=== PATIENT | female | born 1980 | race Caucasian/White ===

== ENCOUNTER → 2018-05-27 | Outpatient (CLI) | payer OTHER ==
[~2018-05-27] MED LIST: IOPAMIDOL 370 MG/ML 200 ML INFUS..BTL INJ ONE; SODIUM CHLORIDE 0.9% 250ML 250 ML ONE
--- NOTE | 2018-05-27 21:13 | Diagnostic Imaging Report ---
EXAM: CT Abdomen and Pelvis WITHOUT and WITH contrast INDICATION: Microscopic Hematuria ^[id number] ^1600 ^Other microscopic hematuria COMPARISON: None. TECHNIQUE: Abdomen and pelvis were scanned utilizing a multidetector helical scanner from the lung base to the pubic symphysis before and after administration of IV contrast. Coronal and sagittal reformations were obtained. CT Urogram protocol was performed. Scan was performed pre- and nephrogenic/excretory phase with a 10 minute split bolus in prone position. 3D volume renderings were created using a separate workstation. IV CONTRAST: 150 mL of Isovue-370 ORAL CONTRAST: Water COMPLICATIONS: None RADIATION DOSE: Total DLP: 1078.97 mGy*cm Estimated effective dose: (DLP x 0.015 x size factor) mSv CTDIvol has been reviewed. It is below the limits set by the Radiation Protocol Committee (RPC). Dose modulation, iterative reconstruction, and/or weight based adjustment of the mA/kV was utilized to reduce the radiation dose to as low as reasonably achievable. FINDINGS: LINES and TUBES: None. LOWER THORAX: Unremarkable HEPATOBILIARY: No focal hepatic lesions. No biliary ductal dilation. GALLBLADDER: No radio-opaque stones or sludge. No wall thickening. SPLEEN: No splenomegaly. PANCREAS: No focal masses or ductal dilatation. ADRENALS: No adrenal nodules KIDNEYS/URETERS: Kidneys enhance symmetrically. No hydronephrosis. No cystic or solid mass lesions. The right proximal ureter is not well opacified likely secondary to peristalsis. No filling defects within the opacified portions of the collecting system. No stones. GI TRACT: No abnormal distention, wall thickening, or evidence of bowel obstruction. Appendix is normal. PELVIC ORGANS/BLADDER: Hysterectomy. No focal bladder wall thickening or filling defects. LYMPH NODES: No lymphadenopathy. VESSELS: Unremarkable. PERITONEUM / RETROPERITONEUM: Trace free fluid in the pelvis. No free air. BONES: Unremarkable. SOFT TISSUES: Low transverse scar. IMPRESSION: No CT findings to explain hematuria. Signed by: DR. Michael Cobb MD on 05/27/2018 9:10 PM
== END ==
LOC: CT 14:53
PROVIDERS: ATTEND Urology
DX: R31.9 Hematuria, unspecified (principal)
CPT/HCPCS: 74178; J7050; Q9967

== ENCOUNTER → 2018-05-30 | Day surgery (SDC) | payer OTHER ==
[~2018-05-30] MED LIST changes: +CEFTRIAXONE SOD 1 GM VIAL ONE; +FENTANYL CITRATE/PF 100MCG/2 ML INJ ONE; -IOPAMIDOL 370 MG/ML 200 ML INFUS..BTL INJ ONE; +IOPAMIDOL 610MG/1ML 300 MG/ML VIAL IV ONE; +LIDOCAINE HCL 2% LOCAL INJ 5 ML SDV VIAL INJ ONE; +MIDAZOLAM HCL 2 MG/2 ML VIAL ONE; +PROPOFOL IV EMULSION 10 MG/ML 20 ML VIAL ONE; +SEVOFLURANE INHAL SOLN 250 ML PEN BTL ONE; -SODIUM CHLORIDE 0.9% 250ML 250 ML ONE
--- OUTSIDE RECORDS SUMMARY | 2018-05-30 05:09 | XMS REPORT | Clinical Summary ---
Author Author [facility] Organization [facility] [place] [facility] Address Unknown Phone Unavailable Care Team Providers Care Supervisor [employer] Name Role Phone Scot Marrufo MD PCP Allergies Active Allergy Reactions Severity Noted Date Comments Aspirin Swelling 10/29/2017 Ibuprofen Swelling 10/29/2017 Current Medications Prescription Sig. Disp. Refills Start End Date Status Date cyclobenzaprine Take 1 tablet (10 mg 15 tablet 0 10/30/19 Active (FLEXERIL) 10 mg tablet total) by mouth 2 (two) 18 times a day as needed for muscle spasms for up to 15 doses. HYDROcodone-acetaminophen Take 2 tablets by mouth Active (NORCO) 5-325 mg per every 4 (four) hours as tablet needed for moderate pain (medication given for hysteroctomy pain on 02/03). keTOROlac (TORadol) 10 mg Take 10 mg by mouth every Active tablet 6 (six) hours as needed for moderate pain. traMADol (ULTRAM) 50 mg Take 1 tablet (50 mg 10 tablet 0 10/30/19 11/06/19 tablet total) by mouth every 6 18 18 (six) hours as needed for moderate pain for up to 10 doses. pantoprazole (PROTONIX) Take 1 tablet (40 mg 30 tablet 2 02/12/20 03/13/20 40 MG EC tablet total) by mouth daily for 18 18 30 days. Active Problems Problem Noted Date Chest pain 02/10/2018 Encounters Date Type Specialty Care Team Description 02/10/2018 [facility] General Internal Medicine Jayson Bosch MD Chest pain, unspecified - Encounter type (Primary Dx) 02/11/2018 10/29/2017 Emergency Emergency Medicine William Melendez, Cervical radiculopathy DO (Primary Dx) after 05/29/2017 Social History Tobacco Use Types Packs/Day Years Used Date Never Smoker Smokeless Tobacco: Never Used Alcohol Use Drinks/Week oz/Week Comments Yes 3 Cans of 1.8 "drinks alcohol occasionally." beer Sex Assigned at Date Recorded Not on file Last Filed Vital Signs Vital Sign Reading Time Taken Blood Pressure 106/69 02/11/2018 11:36 AM CDT Pulse 69 02/11/2018 11:36 AM CDT Temperature 36.1 C (97 F) 02/11/2018 11:36 AM CDT Respiratory Rate 16 02/11/2018 11:36 AM CDT Oxygen Saturation 98% 02/11/2018 11:36 AM CDT Inhaled Oxygen - - Concentration Weight 72.6 kg (160 lb) 02/10/2018 10:25 PM CDT Height 160 cm (5' 3") 02/10/2018 10:25 PM CDT Body Mass Index 28.34 02/10/2018 10:25 PM CDT Plan of Treatment Health Maintenance Due Date Last Done Comments CERVICAL CANCER SCREENING 01/24/2000 INFLUENZA VACCINE 02/19/2018 Procedures Procedure Name Priority Date/Time Associated Diagnosis Comments TROPONIN Timed 02/11/2018 Results for this 10:55 AM CDT procedure are in the results section. ECG 12-LEAD Routine 02/11/2018 Results for this 9:59 AM CDT procedure are in the results section. ECHOCARDIOGRAM 2D Routine 02/11/2018 Results for this COMPLETE W MMODE SPECTRAL 9:08 AM CDT procedure are in the COLOR DOPPLER ([id number]) results section. ZZESTIMATED GFR Routine 02/11/2018 Results for this 5:38 AM CDT procedure are in the results section. BASIC METABOLIC PANEL Routine 02/11/2018 Results for this 5:38 AM CDT procedure are in the results section. CBC HEMOGRAM Routine 02/11/2018 Results for this 5:38 AM CDT procedure are in the results section. TROPONIN Timed 02/11/2018 Results for this 12:21 AM CDT procedure are in the results section. ECG 12-LEAD Routine 02/11/2018 Results for this 12:11 AM CDT procedure are in the results section. XR CHEST 2 VW STAT 10/29/2017 Results for this 5:54 AM CDT procedure are in the results section. CT CERVICAL SPINE WO STAT 10/29/2017 Results for this CONTRAST 5:44 AM CDT procedure are in the results section. ZZESTIMATED GFR STAT 10/29/2017 Results for this 5:19 AM CDT procedure are in the results section. B NATRIURETIC PEPTIDE STAT 10/29/2017 Results for this 5:19 AM CDT procedure are in the results section. TROPONIN STAT 10/29/2017 Results for this 5:19 AM CDT procedure are in the results section. COMPREHENSIVE METABOLIC STAT 10/29/2017 Results for this PANEL 5:19 AM CDT procedure are in the results section. HC COMPLETE BLD COUNT STAT 10/29/2017 Results for this W/AUTO DIFF 5:19 AM CDT procedure are in the results section. HCG QUALITATIVE, URINE Routine 10/29/2017 Results for this SCREEN 5:08 AM CDT procedure are in the results section. ECG 12-LEAD STAT 10/29/2017 Results for this 4:43 AM CDT procedure are in the results section. after 05/29/2017 Results * Troponin (02/11/2018 10:55 AM) Only the most recent of 3 results within the time period is included. Troponin <0.30 0.00 - 0.30 ng/mL [facility] DEPARTMENT OF Comment: PATHOLOGY AND 0.11 - 1.49 GENOMIC MEDICINE ng/mlMay indicate increased risk of acute coronary syndrome. >=1.5 ng/ml Consistent with acute myocardial infarction. The diagnostic value of a single normal or non-diagnostic result is questionable.Serial samples at 2-6 hour intervals are required to rule out acute myocardial injury. Specimen Plasma specimen Performing Organization Address City/State/Zipcode Phone Number [place] [phone] [place] [address] PATHOLOGY AND GENOMIC MEDICINE * ECG 12 lead (02/11/2018 9:59 AM) Only the most recent of 3 results within the time period is included. Ventricular rate 69 [facility] Atrial rate 69 [facility] WI interval 120 [facility] QRSD interval 80 [facility] QT interval 390 [facility] QTC interval 417 [facility] P axis 1 60 [facility] QRS axis 1 21 [facility] T wave axis 28 [facility] EKG impression Normal sinus rhythm with sinus [facility] arrhythmia-Normal ECG-In automated comparison with ECG of 11-FEB-2018 00:11,-No significant change was found- Performing Organization Address City/State/Zipcode Phone Number [facility] MUSE [address] [place] [address] * Echocardiogram complete w contrast and 3D if needed (02/11/2018 9:08 AM) Ao Root Diameter 2.69 cm [facility] AoV Area, Vmax 2.07 cm2 [facility] AoV Area, VTI 2.24 cm2 [facility] AoV Mean PG 5.22 mmHg [facility] AoV Peak PG 9.00 mmHg [facility] AoV Vmax 1.50 m/s [facility] AoV VTI 0.30 m [facility] IVS,d 0.95 cm [facility] IVS/LVPW,2D 0.95 [facility] Left Atrium Dimension 3.83 cm [facility] Anterior LV,d 4.41 cm [facility] LV EF,2D 64.60 % [facility] LV,s 3.12 cm [facility] LVOT area 2.75 cm2 [facility] LVOT Diam,S 1.87 cm [facility] LVOT Vmax 1.13 m/s [facility] LVOT VTI 0.24 m [facility] LVPWD,d 1.00 cm [facility] PV Pk Grad 3.68 mmHg [facility] PV VMAX 0.96 m/s [facility] TR Vpeak 2.20 mm/s [facility] MV E A ratio 2.05 mmHg [facility] TR pk grad 19.40 mmHg [facility] E wave decelartion time 197.26 msec [facility] MV Peak A Nino 0.41 m/s [facility] MV valve area p 1/2 3.85 cm2 [facility] method MV Peak E Nino 0.83 m/s [facility] MV stenosis pressure 1/2 57.20 ms [facility] time AV LVOT peak gradient 5.15 mmHg [facility] Ao Root Diameter 2.69 cm [facility] MV mean gradient 1.22 mmHg [facility] LV SYS VOL 38.45 ml [facility] LV RANGEL VOL 88.05 ml [facility] LV SV Teich 2D 49.60 ml [facility] LV Vol s Teich PSAX 38.45 ml [facility] LVOT CO 4.37 l/min [facility] LVOT HR for LVOT CO 65.28 bpm [facility] MR peak grad 3.42 mmHg [facility] MV Vmax 0.92 m [facility] MV VTI Tips 0.22 m [facility] AoV Vmn 1.09 [facility] IVS s 2D 1.30 [facility] LV FS Teich 2D 29.26 [facility] MV AE ratio 0.49 [facility] LV FS Cube 2D 29.26 [facility] LVOT Vmn 0.83 [facility] Aov area Vmn 2.09 cm2 [facility] LVOT mean grad 2.99 mmHg [facility] MAX Pred HR 180.95 [facility] 85 of MPHR 153.81 [facility] Calc MPHR 180.95 bpm [facility] IVS pct thck PLAX 37.24 % [facility] LV SV Cube 2D 55.32 ml [facility] LV vol d cube 2D 85.63 ml [facility] LV vol s cube 2D 30.31 ml [facility] LVPW pct thck PLAX 32.44 % [facility] LVPW s PLAX 1.32 cm [facility] MV Decel slope 4.22 m/s2 [facility] Pred Exer Dur R1 10.17 [facility] Pred METS R1 9.62 [facility] LA Vol MOD A4C 34.76 ml [facility] Velocity Ratio (V1/V2) 0.75 m/s [facility] EF 56.33 % [facility] E/A ratio 2.02 [facility] Narrative Performed At [facility] Left ventricular systolic function is normal. Left Ventricular ejection fraction is 50 - 55%. Normal left ventricular regional wall motion. Normal right ventricular size and function with normal systolic PA pressure. No hemodynamically significant valvular stenosis or regurgitation. No pericardial effusion. No previous echo for comparison. Performing Organization Address City/State/Zipcode Phone Number [facility] [address] [place] [address] * Estimated GFR (02/11/2018 5:38 AM) Only the most recent of 2 results within the time period is included. GFR Non Af Amer >90 mL/min/1.73 m2 [facility] DEPARTMENT OF PATHOLOGY AND GENOMIC MEDICINE GFR Af Amer >90 mL/min/1.73 m2 [facility] DEPARTMENT OF Comment: PATHOLOGY AND Chronic kidney disease: <60 GENOMIC MEDICINE mL/min/1.73m2 Kidney failure: <15 mL/min/1.73m2 The estimated GFR is calculated from the IDMS-traceable Modification of Diet in Renal Disease Equation. The accuracy of the calculation is poor when the creatinine is normal. Calculated values >90 mL/min/1.73m2 are not reported. This equation has not been validated in children (<18 years), women, the elderly (>70 years), or ethnic groups other than Caucasians and Americans. Specimen Plasma specimen Performing Organization Address City/[facility]/Zipcode Phone Number [place] [address] [place] [address] PATHOLOGY AND [employer] MEDICINE * CBC hemogram (02/11/2018 5:38 AM) WBC 5.9 4.2 - 11.0 k/uL [facility] OF PATHOLOGY AND GENOMIC MEDICINE RBC 3.28 (L) 4.04 - 5.86 m/uL [facility] DEPARTMENT OF PATHOLOGY AND GENOMIC MEDICINE HGB 10.2 (L) 11.5 - 15.3 g/dL [facility] DEPARTMENT OF PATHOLOGY AND GENOMIC MEDICINE HCT 31.8 (L) 34.0 - 45.0 % [facility] DEPARTMENT OF PATHOLOGY AND GENOMIC MEDICINE MCV 97.0 80.0 - 98.0 fL [facility] DEPARTMENT OF PATHOLOGY AND GENOMIC MEDICINE MCH 31.1 27.0 - 34.0 pg [facility] DEPARTMENT OF PATHOLOGY AND GENOMIC MEDICINE MCHC 32.1 31.5 - 36.5 g/dL [facility] DEPARTMENT OF PATHOLOGY AND GENOMIC MEDICINE RDW - SD 43.0 37.0 - 51.0 fL [facility] DEPARTMENT OF PATHOLOGY AND GENOMIC MEDICINE MPV 9.6 7.4 - 10.4 fL [facility] DEPARTMENT OF PATHOLOGY AND GENOMIC MEDICINE Platelet count 328 150 - 400 k/uL [facility] DEPARTMENT PATHOLOGY AND GENOMIC MEDICINE Nucleated RBC 0.00 /100 WBC [facility] OF PATHOLOGY AND GENOMIC MEDICINE Specimen Blood Performing Organization Address City/[facility]/Zipcode Phone Number [place] [address] [place] [address] PATHOLOGY AND [employer] MEDICINE * Basic metabolic panel (02/11/2018 5:38 AM) Sodium 140 135 - 150 mEq/L [facility] DEPARTMENT OF PATHOLOGY AND GENOMIC MEDICINE Potassium 3.6 3.5 - 5.0 mEq/L [facility] DEPARTMENT OF PATHOLOGY AND GENOMIC MEDICINE Chloride 103 98 - 112 mEq/L [facility] DEPARTMENT PATHOLOGY AND GENOMIC MEDICINE CO2 27 24 - 31 mmol/L [facility] DEPARTMENT OF PATHOLOGY AND GENOMIC MEDICINE Anion gap 10@ANIO 7 - 15 mEq/L [facility] DEPARTMENT OF PATHOLOGY AND GENOMIC MEDICINE BUN 12 7 - 18 mg/dL [facility] DEPARTMENT OF PATHOLOGY AND GENOMIC MEDICINE Creatinine 0.50 0.50 - 0.90 mg/dL [facility] DEPARTMENT OF PATHOLOGY AND GENOMIC MEDICINE Glucose 100 65 - 100 mg/dL [facility] DEPARTMENT OF PATHOLOGY AND GENOMIC MEDICINE Calcium 8.7 8.3 - 10.2 mg/dL [facility] DEPARTMENT OF PATHOLOGY AND GENOMIC MEDICINE Specimen Plasma specimen Performing Organization Address City/[facility] Phone Number [facility] DEPARTMENT OF [address] [place] [address] PATHOLOGY AND GENOMIC MEDICINE * XR Chest 2 Vw (10/29/2017 5:54 AM) Narrative Performed At EXAMINATION:[facility] CLINICAL [facility]:SHORTNESS OF BREATH COMPARISON: None . IMPRESSION: Cardiomediastinal silhouette and pulmonary vasculature are within normal limits. Lungs are clear. No pleural effusion or pneumothorax. Bones are unremarkable. [id number] Procedure Note Interface, Radiology Results Incoming - 10/29/2017 6:13 AM CDT EXAMINATION: XR CHEST 2 VW CLINICAL HISTORY: SHORTNESS OF BREATH COMPARISON: None . IMPRESSION: Cardiomediastinal silhouette and pulmonary vasculature are within normal limits. Lungs are clear. No pleural effusion or pneumothorax. Bones are unremarkable. [facility]-[id number] Performing Organization Address [facility] Hospitalcoin Phone Number [facility] [address] [place] [address] * CT Cervical Spine Wo Contrast (10/29/2017 5:44 AM) Narrative Performed At EXAMINATION:CT CERVICAL SPINE WO CONTRAST [facility] CT IMAGING WAS PERFORMED WITH ITERATIVE RECONSTRUCTION TECHNIQUE AND/OR AUTOMATED EXPOSURE CONTROL TO REDUCE RADIATION DOSE. CLINICAL HISTORY:left arm parasthesia COMPARISON:None. TECHNIQUE: Axial helical CT images throughout the cervical spine were performed without IV contrast. Sagittal and coronal reformatted images were generated. FINDINGS: 1.There is no evidence of fracture, traumatic subluxation, or prevertebral soft tissue swelling. There is slight reversal of the normal cervical lordotic curve with apex at C5-6 which could be at least in part positional in nature.. 2. 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 3.There is some minimal spondylolisthesis and there are moderate to marked degenerative changes in the facet joints at T2-T3. 4.There is minimal cervical spondylosis without cervical spondylolisthesis. There is no spinal canal or foraminal stenosis. IMPRESSION: No acute cervical spine bony abnormality. There is slight reversal of the normal cervical lordotic curve which could be at least in part positional in nature. [id number] Procedure Note Interface, Radiology Results Incoming - 10/29/2017 6:23 AM CDT EXAMINATION: CT CERVICAL SPINE WO CONTRAST CT IMAGING WAS PERFORMED WITH ITERATIVE RECONSTRUCTION TECHNIQUE AND/OR AUTOMATED EXPOSURE CONTROL TO REDUCE RADIATION DOSE. CLINICAL HISTORY: left arm parasthesia COMPARISON: None. TECHNIQUE: Axial helical CT images throughout the cervical spine were performed without IV contrast. Sagittal and coronal reformatted images were generated. FINDINGS: 1. There is no evidence of fracture, traumatic subluxation, or prevertebral soft tissue swelling. There is slight reversal of the normal cervical lordotic curve with apex at C5-6 which could be at least in part positional in nature.. 2. 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 3. There is some minimal spondylolisthesis and there are moderate to marked degenerative changes in the facet joints at T2-T3. 4. There is minimal cervical spondylosis without cervical spondylolisthesis. There is no spinal canal or foraminal stenosis. IMPRESSION: No acute cervical spine bony abnormality. There is slight reversal of the normal cervical lordotic curve which could be at least in part positional in nature. [facility]-[id number] Performing Organization Address City/State/Zipcode Phone Number [facility] [address] [place] [address] * CBC with platelet and differential (10/29/2017 5:19 AM) WBC 5.6 4.2 - 11.0 k/uL [facility] DEPARTMENT OF PATHOLOGY AND GENOMIC MEDICINE RBC 3.79 (L) 4.04 - 5.86 m/uL [facility] DEPARTMENT OF PATHOLOGY AND GENOMIC MEDICINE HGB 11.7 11.5 - 15.3 g/dL [facility] DEPARTMENT OF PATHOLOGY AND GENOMIC MEDICINE HCT 36.0 34.0 - 45.0 % [facility] DEPARTMENT OF PATHOLOGY AND GENOMIC MEDICINE MCV 95.0 80.0 - 98.0 fL [facility] DEPARTMENT OF PATHOLOGY AND GENOMIC MEDICINE MCH 30.9 27.0 - 34.0 pg [facility] DEPARTMENT OF PATHOLOGY AND GENOMIC MEDICINE MCHC 32.5 31.5 - 36.5 g/dL [facility] DEPARTMENT OF PATHOLOGY AND GENOMIC MEDICINE RDW - SD 44.6 37.0 - 51.0 fL [facility] DEPARTMENT OF PATHOLOGY AND GENOMIC MEDICINE MPV 10.0 7.4 - 10.4 fL [facility] DEPARTMENT OF PATHOLOGY AND GENOMIC MEDICINE Platelet count 271 150 - 400 k/uL [facility] DEPARTMENT OF PATHOLOGY AND GENOMIC MEDICINE Nucleated RBC 0.00 /100 WBC [facility] DEPARTMENT OF PATHOLOGY AND GENOMIC MEDICINE Neutrophils 63.7 36.0 - 66.0 % [facility] DEPARTMENT OF PATHOLOGY AND GENOMIC MEDICINE Lymphocytes 25.0 24.0 - 44.0 % [facility] DEPARTMENT OF PATHOLOGY AND GENOMIC MEDICINE Monocytes 8.4 (H) 0.0 - 6.0 % [facility] DEPARTMENT OF PATHOLOGY AND GENOMIC MEDICINE Eosinophils 1.8 0.0 - 6.0 % [facility] DEPARTMENT PATHOLOGY AND GENOMIC MEDICINE Basophils 0.7 0.0 - 1.2 % [facility] DEPARTMENT PATHOLOGY AND GENOMIC MEDICINE Immature granulocytes 0.4 0.0 - 1.0 % [facility] DEPARTMENT OF PATHOLOGY AND [employer] [facility]ICINE Specimen Blood Performing Organization Address City/[facility] [place] [address] PATHOLOGY AND [employer] [facility] * B natriuretic peptide (10/29/2017 5:19 AM) BNP 28 0 - 100 pg/mL [facility] PATHOLOGY AND [employer] MEDICINE Specimen Blood Performing Organization Address City/[facility] [place] [address] PATHOLOGY AND [employer] [facility] * Comprehensive metabolic panel (10/29/2017 5:19 AM) Sodium 138 135 - 150 mEq/L [facility] DEPARTMENT OF PATHOLOGY AND GENOMIC MEDICINE Potassium 3.7 3.5 - 5.0 mEq/L [facility] DEPARTMENT OF PATHOLOGY AND GENOMIC MEDICINE Chloride 106 100 - 109 mEq/L [facility] DEPARTMENT OF PATHOLOGY AND GENOMIC MEDICINE CO2 24 24 - 32 mmol/L [facility] DEPARTMENT OF PATHOLOGY AND GENOMIC MEDICINE Anion gap 8 7 - 15 mEq/L [facility] DEPARTMENT OF Comment: PATHOLOGY AND Starting from October [employer] [facility] , anion gap calculation no longer incorporates potassium. Please note the change. BUN 11 7 - 18 mg/dL [facility] DEPARTMENT OF PATHOLOGY AND [employer] MEDICINE Creatinine 0.7 (L) 0.8 - 1.5 mg/dL [facility] DEPARTMENT OF PATHOLOGY AND GENOMIC MEDICINE Glucose 97 65 - 100 mg/dL [facility] DEPARTMENT OF PATHOLOGY AND GENOMIC MEDICINE Calcium 8.3 (L) 8.6 - 10.7 mg/dL [facility] DEPARTMENT OF PATHOLOGY AND GENOMIC MEDICINE Protein 6.9 6.3 - 8.2 g/dL [facility] DEPARTMENT OF PATHOLOGY AND GENOMIC MEDICINE Albumin 3.8 3.2 - 5.0 g/dL [facility] DEPARTMENT OF PATHOLOGY AND GENOMIC MEDICINE A/G ratio 1.2 0.7 - 3.8 [facility] DEPARTMENT OF PATHOLOGY AND GENOMIC MEDICINE Alkaline phosphatase 43 30 - 120 U/L [facility] DEPARTMENT OF PATHOLOGY AND GENOMIC MEDICINE AST 11 (L) 15 - 37 U/L [facility] DEPARTMENT OF PATHOLOGY AND GENOMIC MEDICINE ALT 17 (L) 30 - 65 U/L [facility] DEPARTMENT OF PATHOLOGY AND GENOMIC MEDICINE Total bilirubin 0.5 0.2 - 1.2 mg/dL [facility] DEPARTMENT OF PATHOLOGY AND GENOMIC MEDICINE Specimen Plasma specimen Performing Organization Address City/State/[facility] Phone Number [facility] [address] [place] [address] PATHOLOGY AND GENOMIC MEDICINE * hCG qualitative, urine screen (10/29/2017 5:08 AM) hCG qualitative, urine Negative Negative [facility] DEPARTMENT OF Comment: PATHOLOGY AND The manufacturers stated GENOMIC MEDICINE sensitivity of HcG test for serum is >/=10 mIU/ml and urine is >/=20mIU/ml. Specimen Urine Performing Organization Address City/State/Zipcode Phone Number [facility] DEPARTMENT [address] [place] [address] PATHOLOGY AND GENOMIC MEDICINE after 05/29/2017 Insurance Payer Benefit Subscriber ID Type Phone Address Plan / Group [employer] xxxxxxxxxx Exchange [employer] EXCHANGE [place] [id number]
--- OUTSIDE RECORDS SUMMARY | 2018-05-30 05:09 | XMS REPORT ---
Author [facility] Address Unknown Phone Unavailable Care Team Providers Care Director Of Application Development Name Role Phone JAVY BOOKER Unavailable Unavailable Payers Payer Name Policy Type Policy Number Effective Date Expiration Date Problems This patient has no known problems. Allergies, Adverse Reactions, Alerts Allergy Name Allergy Type Status Severity Reaction(s) Onset Date Inactive Date Treating Clinician Comments aspirin DA Active U 2015-02-02 00:00:00 ibuprofen DA Active U 2015-02-02 00:00:00 Medications This patient has no known medications. Results Test Description Test Time Test Comments Text Results Atomic Results Result Comments CT ABDOMEN/PELVIS WOW 2018-05-27 20:59:00 [place] [address] Patient Name: EILSABETH MIKE MR #: [id number] : 1980 Age/Sex: 38/F Req #: [id number] Adm Physician: Ordered by: JAVY BOOKER MD Report #: [id number] Location: CT Room/Bed: Procedure: [id number] CT/CT ABDOMEN/PELVIS WOW Exam Date: 05/27/18 Exam Time: 1600 REPORT STATUS: Signed EXAM: CT Abdomen and Pelvis WITHOUT and WITH contrast INDICATION: Microscopic Hematuria [id number] Other microscopic hematuria COMPARISON: None. TECHNIQUE: Abdomen and pelvis were scanned utilizing a multidetector helical scanner from the lung base to the pubic symphysis before and after administration of IV contrast. Coronal and sagittal reformations were obtained. CT Urogram protocol was performed. Scan was performed pre- and nephrogenic/excretory phase with a 10 minute split bolus in prone position. 3D volume renderings were created using a separate workstation. IV CONTRAST: 150 mL of Isovue-370 ORAL CONTRAST: Water COMPLICATIONS: None RADIATION DOSE: Total DLP: 1078.97 mGy*cm Estimated effective dose: (DLP x 0.015 x size factor) mSv CTDIvol has been reviewed. It is below the limits set by the Radiation Protocol Committee (RPC). Dose modulation, iterative reconstruction, and/or weight based adjustment of the mA/kV was utilized to reduce the radiation dose to as low as reasonably achievable. FINDINGS: LINES and TUBES: None. LOWER THORAX: Unremarkable HEPATOBILIARY: No focal hepatic lesions. No biliary ductal dilation. GALLBLADDER: No radio- opaque stones or sludge. No wall thickening. SPLEEN: No splenomegaly. PANCREAS: No focal masses or ductal dilatation. ADRENALS: No adrenal nodules KIDNEYS/URETERS: Kidneys enhance symmetrically. No hydronephrosis. No cystic or solid mass lesions. The right proximal ureter is not well opacified likely secondary to peristalsis. No filling defects within the opacified portions of the collecting system. No stones. GI TRACT: No abnormal distention, wall thickening, or evidence of bowel obstruction. Appendix is normal. PELVIC ORGANS/BLADDER: Hysterectomy. No focal bladder wall thickening or filling defects. LYMPH NODES: No lymphadenopathy. VESSELS: Unremarkable. PERITONEUM / RETROPERITONEUM: Trace free fluid in the pelvis. No free air. BONES: Unremarkable. SOFT TISSUES: Low transverse scar. IMPRESSION: No CT findings to explain hematuria. Signed by: DR. Michael Dao MD on 05/27/2018 9:10 PM Dictated By: MICHAEL DAO MD 09 Transcribed By: YOLA on 05/27/182109 COPY TO: JAVY BOOKER MD
[2018-05-30 08:05] VITALS: BP 102/54
--- NOTE | 2018-05-30 13:14 | Operative Report ---
DATE OF PROCEDURE: May 30, 2018 PREOPERATIVE DIAGNOSES 1. Multiple chronic urinary tract infections. 2. Clinical signs and symptoms of interstitial cystitis without hematuria. POSTOPERATIVE DIAGNOSES 1. Multiple chronic urinary tract infections. 1. Clinical signs and symptoms of interstitial cystitis without hematuria. PROCEDURES PERFORMED 1. Cystourethroscopy with hydrodistention (entirely separate procedure for the clinical signs and symptoms of interstitial cystitis). 2. Cystourethroscopy with left ureteral catheterization and left retrograde pyelogram (entirely separate procedure for the multiple chronic urinary tract infections). 3. Cystourethroscopy with right ureteral catheterization and right retrograde pyelogram (entirely separate procedure for the multiple chronic urinary tract infections). 4. Supervision of fluoroscopy. 5. Interpretation of retrograde pyelography. ANESTHESIA: General. ESTIMATED BLOOD LOSS: Minimal. COMPLICATIONS: None. INDICATIONS FOR PROCEDURE: Ms. Alvarado is a very pleasant [id number] female patient with a history of pelvic pain and multiple chronic urinary tract infections. She and I had a long discussion in regard to the alternatives, the risks and benefits including doing nothing, cystoscopy, IVP, retrograde pyelograms or renal ultrasound, and hydrodistention. She voiced understanding of the options, of the alternatives, of the risks and the benefits, and she elected to proceed in order to avoid the nephrotoxic risk of dye. PROCEDURE IN DETAIL: After informed consent was obtained, the patient was taken to the operating room suite. She was placed supine on the operating table, and she underwent general anesthesia by the anesthesia service. She was placed in the dorsal lithotomy, and a time out was taken. A 21-Dominican cystoscope was entered per urethra, and a normal urethra was noted. Panendoscopy of the bladder revealed no tumors, no stones. Both ureteral orifices were in their normal anatomical location and position and were seen to efflux clear urine. A hydrodistention was performed, revealing a capacity of 800 mL. There were no glomerulations, and there were no Hunner ulcers. Bilateral retrograde pyelograms were performed, which were normal. The bladder was drained. The patient was awakened from anesthesia and transported to the recovery room in excellent condition. SUPERVISION OF FLUOROSCOPY AND INTERPRETATION OF RETROGRADE URETEROPYELOGRAPHY: I was present throughout the entire procedure. Attention was turned toward the left and right ureteral orifices, which were catheterized in a retrograde fashion. Contrast was injected, revealing delicate ureters and delicate pelvocaliceal systems. Several air-bubbling filling defects which cleared under fluoroscopy. IMPRESSION: Normal retrograde pyelograms. Job#: [id number] EV cc:ESTEBAN ACUÑA MD
== END | disposition home or self-care (01) ==
LOC: OR 05:06
PROVIDERS: ATTEND Urology
DX: N39.0 Urinary tract infection, site not specified (principal); R35.1 Nocturia; R35.0 Frequency of micturition; R39.15 Urgency of urination; R10.2 Pelvic and perineal pain; Z88.6 Allergy status to analgesic agent; Z88.8 Allergy status to other drugs, medicaments and biological substances; Z90.710 Acquired absence of both cervix and uterus
CPT/HCPCS: 52005; 74420; 81025; C1758; J0696; J2001; J2250; J2704; Q9967

== ENCOUNTER → 2020-01-14 | Outpatient (CLI) | payer OTHER ==
[~2020-01-14] MED LIST changes: -CEFTRIAXONE SOD 1 GM VIAL ONE; -FENTANYL CITRATE/PF 100MCG/2 ML INJ ONE; +IOPAMIDOL 370 MG/ML 200 ML INFUS..BTL INJ ONE; -IOPAMIDOL 610MG/1ML 300 MG/ML VIAL IV ONE; -LIDOCAINE HCL 2% LOCAL INJ 5 ML SDV VIAL INJ ONE; -MIDAZOLAM HCL 2 MG/2 ML VIAL ONE; -PROPOFOL IV EMULSION 10 MG/ML 20 ML VIAL ONE; -SEVOFLURANE INHAL SOLN 250 ML PEN BTL ONE; +SODIUM CHLORIDE 0.9% 250ML 250 ML ONE
--- NOTE | 2020-01-14 14:43 | Diagnostic Imaging Report ---
EXAM: CT Abdomen and Pelvis WITHOUT and WITH intravenous contrast - Hematuriaprotocol INDICATION: Gross hematuria COMPARISON: CT abdomen/pelvis of 05/14/2019 and 05/27/2018 TECHNIQUE: Abdomen and pelvis were scanned utilizing a multidetector helical scanner from the lung base to the pubic symphysis before and after administration of IV contrast. Coronal and sagittal reformations were obtained. Hematuria protocol was used. Scan was performed prior to contrast administration and during portal venous phase. IV CONTRAST: 100 mL of Isovue 370 ORAL CONTRAST: None COMPLICATIONS: None RADIATION DOSE: Total DLP: 1016 mGy*cm Dose modulation, iterative reconstruction, and/or weight based adjustment of the mA/kV was utilized to reduce the radiation dose to as low as reasonably achievable. FINDINGS: LOWER THORAX: Partially visualized bilateral saline breast implants. HEPATOBILIARY: No focal hepatic lesions. No biliary ductal dilatation. The gallbladder appears unremarkable. SPLEEN: No splenomegaly. PANCREAS: No focal masses or ductal dilatation. ADRENALS: No adrenal nodules. KIDNEYS/URETERS: No hydronephrosis, stones, or solid mass lesions. Excretory phase images demonstrate opacification of the majority of the course of both ureters with no filling defect to suggest urothelial mass lesion. PELVIC ORGANS/BLADDER: No bladder mass or wall thickening. PERITONEUM / RETROPERITONEUM: No free air or fluid. LYMPH NODES: No lymphadenopathy. VESSELS: Unremarkable. GI TRACT: Mild diverticulosis. No CT evidence of diverticulitis. No abnormal bowel thickening. No bowel obstruction. Normal appendix. BONES AND SOFT TISSUES: No acute osseous injury. No suspicious lytic or blastic lesions. IMPRESSION: No hydronephrosis, renal calculi, or solid renal mass lesion. No urothelial filling defect to suggest urothelial mass lesion. No bladder wall thickening or mass. Signed by: Jaren Price MD on 01/14/2020 2:40 PM
== END ==
LOC: CT 11:07
PROVIDERS: ATTEND Urology
DX: R31.0 Gross hematuria (principal)
CPT/HCPCS: 74178; J7050; Q9967